=== PATIENT | male | born 1980 | race Two or more races ===

== ENCOUNTER 2020-03-13 10:49 | Emergency (ER) | payer OTHER ==
[~2020-03-13] VITALS: Ht 167.6 cm; Wt 67.0 kg
[2020-03-13 10:56] VITALS: BP 146/98
--- NOTE | 2020-03-13 11:03 | NUR ---
first contact with pt. pt c/o rt middle finger lac. bleeding controlled. pt's aox4. resps even and unlabored.
[2020-03-13] MEDS ORDERED: LIDOCAINE-MPF 1%, 5ML ONE (11:24)
[2020-03-13] MEDS ORDERED: ONDANSETRON 2MG/ML, 2ML ONE (11:25)
[2020-03-13] MEDS ORDERED: MORPHINE SULFATE 4 MG/ML, 1ML ONE (11:25)
[2020-03-13] MEDS ORDERED: LIDOCAINE-MPF 1%, 5ML INFIL ONE (11:30)
--- NOTE | 2020-03-13 11:40 | NUR ---
pt in xray at this time.
[2020-03-13] MEDS ORDERED: NEOSPORIN OINT. PKT 1 PACKET ONE (12:14)
--- NOTE | 2020-03-13 12:34 | NUR ---
Patient given discharge instructions and they have confirmed that they understand the instructions. Patient ambulatory with steady gait.
== END 2020-03-13 12:35 | disposition home or self-care (01) ==
LOC: ED 11:28
DX: S61.312A Laceration without foreign body of right middle finger with damage to nail, initial encounter (principal); W31.2XXA Contact with powered woodworking and forming machines, initial encounter; Y93.89 Activity, other specified; Y92.89 Other specified places as the place of occurrence of the external cause; Y99.0 Civilian activity done for income or pay
CPT/HCPCS: 12001; 99283

== ENCOUNTER 2020-03-26 11:14 | Emergency (ER) | payer OTHER ==
[~2020-03-26] VITALS: Ht 167.6 cm; Wt 77.6 kg
[2020-03-26 11:23] VITALS: BP 130/88
--- NOTE | 2020-03-26 11:37 | NUR ---
Patient/Caregiver given discharge instructions and they have confirmed that they understand the instructions. Patient ambulatory with steady gait.
== END 2020-03-26 11:40 | disposition home or self-care (01) ==
LOC: ED 11:29
DX: S61.212D Laceration without foreign body of right middle finger without damage to nail, subsequent encounter (principal); X58.XXXD Exposure to other specified factors, subsequent encounter
CPT/HCPCS: 99281